=== PATIENT | female | born 1985 | race Hispanic/Latino ===

== ENCOUNTER → 2019-04-04 | Outpatient (CLI) | payer MEDICAID | END | disposition home or self-care (01) | LOC: OIH 08:38 | PROVIDERS: ATTEND Family Medicine | DX: M25.571 Pain in right ankle and joints of right foot (principal); M79.89 Other specified soft tissue disorders | CPT/HCPCS: 73610; 73630 ==

== ENCOUNTER 2023-06-29 07:55 | Day surgery (SDC) | payer MEDICAID ==
[2023-06-27 10:04] VITALS: BP 133/72; PULSE 75; RESP 16
[2023-06-27 10:53] LABS: BASOPHILS # (AUTO) 0.08 K/uL (0.00-0.20); BASOPHILS % (AUTO) 0.8 % (0.0-5.0); EOSINOPHILS # (AUTO) 0.12 K/uL (0.00-0.70); EOSINOPHILS % (AUTO) 1.2 % (0.0-8.0); HEMATOCRIT 38.4 % (36-48); IMMATURE GRANULOCYTE ABSOLUTE 0.04 K/uL (0-1); LYMPHOCYTES # (AUTO) 2.3 K/uL (1.0-4.8); LYMPHOCYTES % (AUTO) 22.4 % (21.0-51.0); MEAN CORPUSCULAR HEMOGLOBIN 32.5 pg (27.0-33.0); MEAN CORPUSCULAR HGB CONC 33.9 g/dL (32.0-36.0); MONOCYTES # (AUTO) 0.7 K/uL (0.1-1.0); MONOCYTES % (AUTO) 6.8 % (3.0-13.0); NEUTROPHILS # (AUTO) 6.9 K/uL (1.8-7.7); NEUTROPHILS % (AUTO) 68.4 % (40.0-77.0); PLATELET COUNT (AUTO) 299 K/uL (130-400); RED CELL DISTRIBUTION WIDTH 12.3 % (11.0-15.5); WHITE BLOOD COUNT (AUTO) 10.1 K/uL (4.8-10.8)
[2023-06-27 11:03] LABS: INR < 0.93 (0.85-1.15); PROTHROMBIN TIME 10.4 SEC (9.6-11.6)
[2023-06-27 11:07] LABS: CREATININE 0.6 mg/dL (0.5-1.5); POTASSIUM 3.9 mmol/L (3.5-5.1)
[2023-06-29] VITALS (8 sets, daily range): BP systolic 132–171; BP diastolic 81–94; PULSE 64–89; RESP 14–19
[~2023-06-29] VITALS: Ht 170.2 cm; Wt 136.0 kg
[~2023-06-29 07:55] MED LIST: LISI20TA24 PO; VERA120T92 PO
[2023-06-29] MEDS ORDERED: MIDAZOLAM HCL 1 MG/ML 2ML VIAL ONE ×3 (13:02→15:05)
[2023-06-29] MEDS ORDERED: MEPERIDINE-PF 25 MG/ML SYG ONE ×2 (13:02→14:09)
[2023-06-29] MEDS ORDERED: LIDOCAINE HCL 1% MDV 50ML VIAL ONE (13:02)
[2023-06-29] MEDS ORDERED: HEPARIN 10,000 UNIT/10ML (1,000 UNIT/ML) VIAL ONE (13:02)
[2023-06-29] MEDS ORDERED: ISOPROTERENOL HCL 0.2 MG/ML AMP/VIAL/BAG ONE (13:05)
[2023-06-29] MEDS ORDERED: PROPOFOL 10 MG/ML 20ML VIAL IV ONE ×2 (14:47→15:09)
[2023-06-29] MEDS ORDERED: ONDANSETRON 4MG INJ ONE (18:16)
== END 2023-06-29 19:10 | disposition home or self-care (01) ==
LOC: DAH 07:55
PROVIDERS: ATTEND Internal Medicine Cardiovascular Disease
DX: I48.0 Paroxysmal atrial fibrillation (principal); I47.19 Other supraventricular tachycardia; I10 Essential (primary) hypertension; F41.9 Anxiety disorder, unspecified; E66.01 Morbid (severe) obesity due to excess calories; Z68.42 Body mass index [BMI] 45.0-49.9, adult; Z83.3 Family history of diabetes mellitus; Z82.49 Family history of ischemic heart disease and other diseases of the circulatory system; Z79.899 Other long term (current) drug therapy; Z98.890 Other specified postprocedural states
CPT/HCPCS: 80048; 84703; 85025; 85610; 85730; 36415; 93005; 93620; 93623; C1894 ×5; C1732; C1730 ×3; A4649 ×2; J3490 ×4; J2250 ×3; J2405; J2175 ×2; J1644; A4215; A4222; A4221; A4663; A4216; A4606; A4223 ×3; 99156; 99157; J2704